=== PATIENT | male | born 1955 | race Caucasian/White ===

== ENCOUNTER 2023-06-18 10:28 | Outpatient (CLI) | payer MEDICARE, OTHER, SELFPAY ==
[2023-06-18 12:08] LABS: PSA Diagnostic* 1.09 ng/mL (0.10-4.00)
== END 2023-06-18 10:29 | disposition home or self-care (01) ==
PROVIDERS: Visit Provider Internal Medicine
DX: C79.51 Secondary malignant neoplasm of bone (principal); Z12.5 Encounter for screening for malignant neoplasm of prostate
CPT/HCPCS: 36415; 84153; 84402